=== PATIENT | male | born 1950 | race Hispanic/Latino ===

== ENCOUNTER 2018-08-18 09:20 | Day surgery (SDC) | payer MEDICARE, BC ==
[2018-08-09 09:43] VITALS: BMI 29.2
[2018-08-18] MEDS ORDERED: Propofol 10 mg/ml Inj (20 ML) ONE ×2 (10:29→10:41)
[2018-08-18] MEDS ORDERED: Sodium Chloride 0.9% 1,000 ML IV SCH (11:15)
[2018-08-18 11:56] VITALS: RESP 16
[2018-08-18 12:59] VITALS: BP 127/72; PULSE 65; TEMP 98.7; O2SAT 98
== END 2018-08-18 13:39 | disposition home or self-care (01) ==
LOC: ENDO 09:20
PROVIDERS: ATTEND Specialist
DX: Z12.11 Encounter for screening for malignant neoplasm of colon (principal); D12.8 Benign neoplasm of rectum; K63.5 Polyp of colon; K57.30 Diverticulosis of large intestine without perforation or abscess without bleeding; K64.8 Other hemorrhoids; I10 Essential (primary) hypertension; N40.0 Benign prostatic hyperplasia without lower urinary tract symptoms; Z86.010 Personal history of colon polyps
CPT/HCPCS: 45385; 88305; J2704; J7030

== ENCOUNTER 2018-10-07 06:11 | Day surgery (SDC) | payer MEDICARE ==
[2018-09-17 09:09] VITALS: BMI 31.9
[2018-10-07] MEDS ORDERED: Lidocaine 1% Inj (20ml) ONE (07:35)
[2018-10-07] MEDS ORDERED: Midazolam 2 MG/2 ML VIAL ONE (07:54)
[2018-10-07] MEDS ORDERED: Rocuronium 10 mg/ml (5 ml) ONE (07:54)
[2018-10-07] MEDS ORDERED: Propofol 10 mg/ml Inj (20 ML) ONE (07:54)
[2018-10-07] MEDS ORDERED: Bupivacaine Liposomal Inj 20 ml ONE (08:05)
[2018-10-07] MEDS: Bupivacaine 0.5% 50 ML IJ ONE ×2 (08:10→09:29)
[2018-10-07] MEDS ORDERED: HYDROmorphone 0.5 mg/0.5 ml ISec IVP PRN ×2 (08:29→14:32)
[2018-10-07] MEDS ORDERED: Sodium Chloride 0.9% 1,000 ML IV SCH (08:30)
[2018-10-07] MEDS ORDERED: Neostigmine Methylsulfate 3mg/3ml Syringe IV ONE (09:09)
[2018-10-07] MEDS ORDERED: Glycopyrrolate 0.2 mg/ml (2ml vial) ONE (09:09)
--- NOTE | 2018-10-07 09:49 | PCM.SURG1 ---
Surgeon's Initial Post Op Note - Surgeon's Notes Surgeon: Dr. Harris Supervisor Drying And Softening: Amrik Price PGY3, Laura PGY4 Type of Anesthesia: General Endo, Local Anesthesia Administered By: Loc Pre-Operative Diagnosis: R inguinal hernia Operative Findings: R indirect and direct inguinal hernia Post-Operative Diagnosis: Same Operation Performed: Open R inguinal hernia repair with mesh Specimen/Specimens Removed: none Estimated Blood Loss: EBL {In ML}: 10 Blood Products Given: N/A Drains Used: No Drains Post-Op Condition: Good Date of Surgery/Procedure: 10/07/18 Time of Surgery/Procedure: 09:49
[2018-10-07] MEDS ORDERED: HYDROmorphone 0.5 mg/0.5 ml ISec IVP ONE ×4 (10:20→12:55)
[2018-10-07] MEDS ORDERED: HYDROmorphone 0.5 mg/0.5 ml ISec ONE ×4 (10:25→13:03)
[2018-10-07] MEDS ORDERED: Albuterol 0.5% Inhal Sol (2.5 mg/0.5 ml) UD IH PRN (14:42)
[2018-10-07] MEDS ORDERED: Oxycodone/Acetaminophen 5/325 mg Tab ONE (14:54)
[2018-10-07] MEDS: Oxycodone/Acetaminophen 5/325 mg Tab PO PRN ×2 (15:13→22:00)
[2018-10-07] MEDS: guaiFENesin-DM 600-30 mg ER Tab PO SCH ×2 (18:19→18:20)
[2018-10-07 23:05] VITALS: RESP 20
[2018-10-08 06:04] VITALS: O2SAT 97
[2018-10-08] MEDS: Oxycodone/Acetaminophen 5/325 mg Tab PO PRN ×2 (06:11→13:56)
[2018-10-08 06:42] LABS: BASO # 0.01 K/mm3 (0.0-2.0); BASO % 0.1 % (0.0-3.0); EOS # 0.1 (0.0-0.7); EOS % 0.5 % (1.5-5.0); GRAN # 8.25 (1.4-6.5); GRAN % 72.6 % (50.0-68.0); HEMOGLOBIN 15.5 g/dL (14.0-18.0); LYMPH # 1.6 (1.2-3.4); LYMPH % 14.1 % (22.0-35.0); MEAN CELL VOLUME 94.6 fl (80.0-105.0); MEAN CORPUSCULAR HEMOGLOBIN 29.9 pg (25.0-35.0); MEAN CORPUSCULAR HGB CONC 31.6 g/dl (31.0-37.0); MEAN PLATELET VOLUME 11.4 fl (7.0-11.0); MONO # 1.5 (0.1-0.6); MONO % 12.7 % (1.0-6.0); RBC 5.18 10^6/uL (3.5-6.1); RED CELL DISTRIBUTION WIDTH 14.1 % (11.5-14.5); WHITE BLOOD COUNT 11.4 10^3/uL (4.5-11.0)
--- NOTE | 2018-10-08 07:45 | CP.SDSHP ---
Same Day Surgery H & P - History Proposed Procedure: R inguinal hernia repair Pre-Op Diagnosis: R inguinal hernia - Previous Medical/Surgical History Cardiac: Valvular Heart Disease Pulmonary: Emphysema/COPD, Smoking Endocrine/Metabolic: Obesity Pain: 2.Mild Pain - Allergies Allergies: Allergies No Known Allergies Allergy (Verified 06/22/16 23:40) - Physical Exam General Appearance: NAD Vital Signs: Vital Signs 10/08/18 10/08/18 10/08/18 01:52 05:47 06:00 Temperature 97.4 F L Pulse Rate 81 96 H 85 Respiratory 20 Rate Blood Pressure 119/86 O2 Sat by Pulse 97 Oximetry Mental Status: Alert & Oriented x3 Neuro: WNL Heart: WNL Lungs: WNL GI: WNL - {Optional Preform as Required} Abdomen: WNL Short Stay Discharge - Short Stay Discharge Admitting Diagnosis/Reason for Visit: K40.90 RIGHT INGUINAL HERNIA Disposition: HOME/ ROUTINE Referrals: Silver Almonte MD [Primary Care Provider] - Follow-up: follow up at Dr. Hansen's office in 1-2 weeks. Additional Instructions (Diet, Activity): No heavy lifting for 1 month OK to take shower tomorrow.
[2018-10-08] MEDS ORDERED: Metoprolol Succinate 50 mg XL Tab PO SCH (08:00)
[2018-10-08] MEDS: guaiFENesin-DM 600-30 mg ER Tab PO SCH (09:13)
[2018-10-08 12:40] VITALS: BP 117/82; PULSE 119; TEMP 97.5
--- NOTE | 2018-10-08 18:26 | CON ---
DATE: 10/07/2018 Dr. Almonte is covering for the patient. HISTORY OF PRESENT ILLNESS: The patient is a 68-year-old who was brought suddenly for right inguinal hernia repair. While the patient was , he was desaturating, so he was admitted for further close observation. The patient denies any chest pain. No history of shortness of breath. No fever, no chills. He complains of pain when he moves. He changes his in bed. PAST MEDICAL HISTORY: The patient has significant past medical history of: 1. BPH. 2. Hyperlipidemia. 3. Hypertension. ALLERGIES: HE IS NOT ALLERGIC TO ANY MEDICATION. MEDICATIONS AT HOME: He is on: 1. . 2. Ventolin HFA. 3. Flomax 0.4 mg daily. 4. Livalo 2 mg daily. 5. Metoprolol 50 mg daily. 6. Avodart 0.5 daily. 7. Aspirin 81 daily. PAST SURGICAL HISTORY: He had open appendectomy many, many years ago, for that he has a big scar. He had hernia repair in the past. SOCIAL HISTORY: He is single. He socially drinks. He used to be heavy smoker, still smokes lightly. PHYSICAL EXAMINATION: GENERAL: He is awake, alert, oriented, able to communicate. VITAL SIGNS: He is afebrile, pulse 85, respirations 20, blood pressure 119/86. LUNGS: Bilateral fair air flow. No rhonchi or crackle. HEART: S1 and S2 audible. ABDOMEN: Soft, obese, nontender. No rebound. No guarding. NEUROLOGICAL: He is awake, alert, oriented, communicative, moves all extremities. LABORATORY DATA: WBC is 11.4, hemoglobin 15, hematocrit 49, platelets 117. ASSESSMENT: 1. Status post inguinal hernia repair. 2. History of hypertension. 3. Benign prostatic hyperplasia. PLAN: The patient is going home. I advised him to do exercise to avoid leg DVT. He will resume on his medications. He is given as needed. Albin Mercado MD
--- NOTE | 2018-10-08 18:50 | PCM.OP ---
Operative Report - Operative Report Date of Surgery/Procedure: 10/07/18 Time of Surgery/Procedure: 08:00 Surgeon: Steven Employment Recruiter: Laura Restrepo Anesthesia/Sedation: General endotrachial Pre-Operative Diagnosis: Right inguinal hernia Post-Operative Diagnosis: Right inguinal hernia Indication for Surgery: This is a 68 Year old male who developed a symptomatic Right inguinal hernia. Surgical repair was indicated using a mesh. The risks , benefits , rationale of surgery were explained, including risk of not operating. Informed consent was obtained for right inguinal hernia repiar with mesh. Operative Findings: direct and indirect right inguinal hernia. Procedure/Operation Description: Patient was brought to the operating room wehre a surgical safety checklist was performed. Preop 2grms of IV ancef was given. Fenenral anesthetic was used. In supine position right groin was prepped and draped in sterile fashion. The scalpel was used to make an oblique incision, parallel and superior to the inguinla ligament . This was deepened through Pablo's and campers fascia using electrocautery down to the external oblique aponeurosis. The external oblique was opened in the direction of its fibers through the external ring using a metzenbaum scissors. The ilioinguinal nerve was identified and divided. The inguinal floor was expoed by creating superior and inferior flaps of the external oblique. The spermatic cord was identified, mobilized at the pubic tubercle and isolated using a [place] drain. The anteromedial aspect of the cord was examined and both indirect and direct hernia was identified. The sac was carefully dissected free of the cord down to the level of the internal ring. The kyle and vessels were identified and protected during the operation. The sac was not opened, the contents were reduced into the peritoneal cavity. A plug was sutured into place using 2-0 prolene sutures. The floor of the canal is suture repaired. Mesh was cut to size in an oval with longitudinal lateral opening. Starting at the pubic tubercle, the mesh was secured flat with interruted 2.0 prolene sutures to the shelving edge inferiorly. the conjoint tendon superiorly. The end of the path were draped around the cord structures at the level of the internal ring. The [place] drain was removed and the cord was returned to its anatomic location above the mesh. Hemostasis was achieved using electrocautery. The external oblique was reapproxiamated using a consinous 2.0 vicryl suture. Pablo's fashia was closed with severl interrupted 3.0 vicryl sutures and the skin was closed using 4.0 subcuricular monofilament. The operative field was cleaned and dried. Dermabond was applied. The testes were gently pulled down into its anatomic position . Estimated Blood Loss: 20 Sponge/Instrument Count: Correct Drains: None Complications: None Specimen: None Discharge & Condition: The patient was extubated and transferred to the PACU in stable condition
== END 2018-10-08 16:34 | disposition home or self-care (01) ==
LOC: SDS 06:11 → 2RNO 15:45 → SDS 10-08 16:34
PROVIDERS: ATTEND Surgery
DX: K40.90 Unilateral inguinal hernia, without obstruction or gangrene, not specified as recurrent (principal); J44.9 Chronic obstructive pulmonary disease, unspecified; E66.9 Obesity, unspecified; F17.200 Nicotine dependence, unspecified, uncomplicated; I38 Endocarditis, valve unspecified; Z68.31 Body mass index [BMI] 31.0-31.9, adult
CPT/HCPCS: 36415; 49505; 85025; 94660; J0690; J1170; J2001; J2250; J2405; J2704; J2710; J3010; J7030